=== PATIENT | female | born 1960 | race Caucasian/White ===

== ENCOUNTER 2017-04-09 06:10 | Day surgery (SDC) | payer OTHER ==
[2017-04-09] MEDS ORDERED: DIPRIVAN 200 MG/20 ML IV ONE (06:11)
[2017-04-09] MEDS ORDERED: Ketamine HCl 50 MG/ML IV ONE (06:11)
[2017-04-09] MEDS ORDERED: Lactated Ringers 1,000 ML IV SCH (06:30)
[2017-04-09 09:44] VITALS: BP 139/97; PULSE 84; O2SAT 99
--- NOTE | 2017-04-09 10:03 | OP ---
SURGERY DATE/TIME: 04/09/2017 0710 PREOPERATIVE DIAGNOSES: 1) Epigastric pain. 2) Screening colon exam. POSTOPERATIVE DIAGNOSES: 1) Mild gastritis. 2) Normal colon. PROCEDURES: 1) Esophagogastroduodenoscopy with biopsy. 2) Colonoscopy. SURGEON: Dr. Carney. ANESTHESIA: Medications were given by the anesthesia department. BRIEF HISTORY: The patient is a 57 year old white female presenting now for endoscopic evaluation. She has been having problems with epigastric pain despite medications. The patient also reports that she has never had her colon looked at previously and wishes to have a screening colonoscopy performed at the same time. The patient was described the risks of the procedure including the risk of perforation, phlebitis, untoward reaction to medication, bleeding, missed lesions, sore throat and vocal cord injury. The patient verbalized her understanding and desired to have the procedure performed. DESCRIPTION OF PROCEDURE: The patient was given the medications by the anesthesia department. She had continuous pulse oximetry, ECG monitoring, intermittent blood pressure monitoring and tidal CO2 monitoring during the examination. She was placed in the left lateral decubitus position. A bite block was placed and the flexible Olympus gastroscope was used to intubate the oropharynx. A view of the larynx was obtained and was normal. The scope was easily passed in the esophagus which was normal throughout its length. The stomach was entered where normal gastric rugal folds were seen and these distended nicely with insufflation of air. The scope was passed along the greater curvature of the stomach to the antrum. The pylorus is encountered and intubated. The duodenum was inspected and found to be normal. The scope is withdrawn towards the stomach. Again, a retroflex view was obtained of the lesser curvature, fundus and cardia regions of the stomach revealed hiatal hernia but no mucosal lesions were noted. The scope was redirected towards the antrum and biopsies were obtained to rule out the presence of Helicobacter pylori-type organisms. The scope was then removed from the patient. Next, a digital rectal examination was performed and revealed normal anal sphincter tone and no masses. The flexible Olympus pediatric colonoscope was used to intubate the rectum. A view of the colon was developed sequentially to the cecum. Upon insertion and withdrawal, including a retroflex view in the rectum, no mucosal lesions were encountered. The scope was removed from the patient who tolerated the procedure well and was sent back to OP recovery in good condition. The prep was noted to be fair to good.
== END 2017-04-09 09:46 | disposition home or self-care (01) ==
LOC: SDC 06:10
PROVIDERS: ATTEND Family Medicine
PROC: 0DB78ZX Excision of Stomach, Pylorus, Via Natural or Artificial Opening Endoscopic, Diagnostic (ICD-10-PCS; principal; 2017-04-09)
PROC: 0DJD8ZZ Inspection of Lower Intestinal Tract, Via Natural or Artificial Opening Endoscopic (ICD-10-PCS; 2017-04-09)
DX: K29.70 Gastritis, unspecified, without bleeding (principal); Z12.11 Encounter for screening for malignant neoplasm of colon; K21.9 Gastro-esophageal reflux disease without esophagitis; Z79.899 Other long term (current) drug therapy
CPT/HCPCS: 00740; 00810; 36415; 82962; 88305; J2704

== ENCOUNTER 2020-03-24 21:35 | Emergency (ER) | payer OTHER ==
--- NOTE | 2020-03-24 21:41 | ERPHSYRPT ---
- History of Present Illness Time Seen by Provider: 03/24/20 21:40 Source: patient Exam Limitations: no limitations Physician History: This is a 60-year-old white female who is right-handed and fell off of her to her left shoulder and then rolled onto left elbow. Patient's last tetanus shot was approximately 3 years ago. Patient is having significant pain in the left shoulder. There is an area of deformity present. Patient denies head injury and she denies neck injury. She has no headache and she has no neck pain. Occurred: just prior to arrival Method of Injury: fell Quality: aching, throbbing Severity of Pain-Max: moderate Severity of Pain-Current: moderate Extremities Pain Location: shoulder: left, elbow: left Modifying Factors: Improves With: immobilization (Improved pain), movement (Attempts to move worsens pain) Associated Symptoms: none Allergies/Adverse Reactions: ciprofloxacin [From Cipro] Allergy (Verified 03/24/20 21:57) Itching Penicillins Allergy (Verified 03/24/20 21:57) Rash Home Medications: Citalopram Hydrobromide [Celexa] 40 mg PO DAILY 04/04/17 [History] Esomeprazole Magnesium [Nexium] 20 mg PO BID 04/04/17 [History] Imipramine HCl 100 mg PO HS 04/04/17 [History] Aspirin EC 81 mg [Ecotrin 81 mg] 81 mg PO DAILY 03/24/20 [History] Losartan Potassium [Cozaar] 25 mg PO BID 03/24/20 [History] Ropinirole HCl 0.5 mg [Requip 0.5 MG] 0.5 mg PO HS 03/24/20 [History] Travel Risk - International Travel Have you traveled outside of the country in past 3 weeks: No - Coronavirus Screening Are you exhibiting any of the following symptoms?: No Close contact with a COVID-19 positive Pt in past 14-21 Days: No - Review of Systems Constitutional: No Symptoms Eyes: No Symptoms Ears, Nose, & Throat: No Symptoms Respiratory: No Symptoms Cardiac: No Symptoms Abdominal/Gastrointestinal: No Symptoms Genitourinary Symptoms: No Symptoms Musculoskeletal: Fall, Injury (Right shoulder) Skin: Other Neurological: No Symptoms (Abrasion left elbow) Psychological: No Symptoms Endocrine: No Symptoms Hematologic/Lymphatic: No Symptoms Immunological/Allergic: No Symptoms All Other Systems: Reviewed and Negative - Past Medical History Pertinent Past Medical History: Yes Neurological History: Migraines ENT History: No Pertinent History Cardiac History: Hypertension Respiratory History: No Pertinent History Endocrine Medical History: No Pertinent History Musculoskeletal History: No Pertinent History GI Medical History: GERD History: No Pertinent History Psycho-Social History: Anxiety Female Reproductive Disorders: No Pertinent History - Past Surgical History Past Surgical History: Yes Cardiac: No Pertinent History Respiratory: No Pertinent History Gastrointestinal: Hernia Repair Genitourinary: No Pertinent History Musculoskeletal: Orthopedic Surgery, Other Female Surgical History: Hysterectomy, Tubal Ligation Other Surgical History: screws in elbow - Social History Smoking Status: Never smoker Exposure to second hand smoke: No Drug Use: none - Nursing Vital Signs Nursing Vital Signs: Initial Vital Signs Temperature 98.1 F 03/24/20 21:45 Pulse Rate 85 03/24/20 21:45 Respiratory Rate 18 03/24/20 21:45 Blood Pressure 118/71 03/24/20 21:45 O2 Sat by Pulse Oximetry 95 03/24/20 21:45 Pain Scale Pain Intensity 8 - Physical Exam General Appearance: mild distress, alert, anxiety Eyes, Ears, Nose, Throat Exam: normal ENT inspection, moist mucous membranes Neck Exam: normal inspection, non-tender, supple, full range of motion Cardiovascular/Respiratory Exam: chest non-tender, normal breath sounds, regular rate/rhythm, heart sounds normal, no respiratory distress Abdominal Exam: non-tender Back Exam: normal inspection, normal range of motion, No CVA tenderness, No vertebral tenderness Shoulder Exam: bone tenderness (Left shoulder and left elbow), deformity (Left shoulder), limited ROM (Left shoulder ), soft tissue tenderness (Left shoulder and left elbow) Elbow/Forearm Exam: normal ROM, abrasions (Left elbow), bone tenderness (Left elbow) Wrist Exam: normal inspection, non-tender, no evidence of injury, normal ROM Hand Exam: normal inspection, non-tender, no evidence of injury, normal ROM Neuro/Tendon Exam: normal sensation, normal tendon functions, responds to pain, no evidence tendon injury Mental Status Exam: alert, oriented x 3, cooperative Skin Exam: warm, abrasion (Left elbow) SpO2 Interpretation: normal O2 Delivery: Room Air Ordered Tests: Active Orders 24 hr Category Date Time Status IV Insertion STAT Care 03/24/20 22:00 Active Sling Application STAT Care 03/25/20 00:11 Active ELBOW (MINIMUM 3 VIEWS) Stat Exams 03/24/20 22:00 Ordered HUMERUS Stat Exams 03/24/20 22:00 Ordered SHOULDER Stat Exams 03/24/20 22:00 Taken SHOULDER Stat Exams 03/25/20 00:00 Ordered Medication Summary Discontinued Medications Generic Name Dose Route Start Last Admin Trade Name Bhupendraq PRN Reason Stop Dose Admin Etomidate 10 mg 03/24/20 23:28 Amidate 20 Mg/10 Ml IV 03/24/20 23:29 STAT ONE Hydromorphone HCl 1 mg 03/24/20 22:00 03/24/20 22:05 Hydromorphone 1 Mg/Ml Ampule IV 03/24/20 22:01 1 mg STAT ONE Administration Hydromorphone HCl Confirm 03/24/20 22:03 Hydromorphone 1 Mg/Ml Ampule Administered 03/24/20 22:04 Dose 1 mg .ROUTE .STK-MED ONE Hydromorphone HCl Confirm 03/24/20 23:23 Hydromorphone 1 Mg/Ml Ampule Administered 03/24/20 23:24 Dose 1 mg .ROUTE .STK-MED ONE Hydromorphone HCl 1 mg 03/24/20 23:23 Hydromorphone 1 Mg/Ml Ampule IV 03/24/20 23:24 STAT ONE Sodium Chloride Confirm 03/24/20 23:24 Sodium Chloride 0.9% 1000 Ml Administered 03/24/20 23:25 Dose 1,000 mls @ ud .ROUTE .STK-MED ONE Ondansetron HCl 4 mg 03/24/20 22:00 03/24/20 22:05 Zofran 4 Mg/2 Ml Vial IV 03/24/20 22:01 4 mg STAT ONE Administration Ondansetron HCl Confirm 03/24/20 22:03 Zofran 4 Mg/2 Ml Vial Administered 03/24/20 22:04 Dose 4 mg .ROUTE .STK-MED ONE Ondansetron HCl 4 mg 03/24/20 23:23 Zofran 4 Mg/2 Ml Vial IV 03/24/20 23:24 STAT ONE Ondansetron HCl Confirm 03/25/20 00:07 Zofran 4 Mg/2 Ml Vial Administered 03/25/20 00:08 Dose 4 mg .ROUTE .STK-MED ONE Oxycodone/Acetaminophen 2 tab 03/25/20 00:11 Percocet Tablet 5/325mg PO 03/25/20 00:12 SENT HOME W/ PATIENT STA Pantoprazole Sodium 40 mg 03/25/20 00:14 Protonix 40 Mg Iv IV 03/25/20 00:15 STAT ONE Pantoprazole Sodium Confirm 03/25/20 00:14 Protonix 40 Mg Iv Administered 03/25/20 00:15 Dose 40 mg IV .STK-MED ONE - Progress Progress: improved, pain not gone completely, re-examined Progress Note: 03/25/20 00:06 X-ray of the left shoulder shows a acute anterior dislocation with an associated fracture of the humeral head. X-ray of the left humerus reveals the above-stated fracture of the humeral head but no other acute fracture dislocation noted. X-ray of the left elbow reveals no acute fracture or dislocation. There is an old avulsion fracture that is small. The surgical screw appears to be in an appropriate position 03/25/20 00:21 The post reduction x-ray of the left shoulder reveals the head of the left humerus remains in the dislocated position while the remainder of the humerus has been reduced sufficiently. Medical decision making: The patient's pain is significantly improved after the reduction. Patient is neurovascularly intact. We will place the patient in a sling and patient will be seen 03/25/2020 in the orthopedic clinic at 8 AM. Counseled pt/family regarding: diagnosis, need for follow-up, rad results - Departure Departure Disposition: Home Clinical Impression: Fracture dislocation of left shoulder joint, Abrasion of left elbow Condition: Stable Critical Care Time: No Referrals: APRIL BLANKENSHIP [Primary Care Provider] - [facility] M-F [id number] Additional Instructions: Wear left sling until you are evaluated by orthopedic clinic tomorrow. Follow- up at the [facility] orthopedic clinic at 8 AM tomorrow morning, March 25, 2020. Take your medication as prescribed. Take ibuprofen 600 mg with food every 8 hours for the next 5 days. Do not eat or drink anything until after you are evaluated by the orthopedic clinic. Prescriptions: Oxycodone HCl/Acetaminophen [Percocet 5-325 mg Tablet] 1 each PO Q8H PRN PRN #8 tablet MDD 3 PRN Reason: Pain
[2020-03-24] MEDS ORDERED: Hydromorphone 1 mg/ml Ampule IV ONE ×2 (22:00→23:23)
[2020-03-24] MEDS ORDERED: Zofran 4 MG/2 ML VIAL IV ONE ×2 (22:00→23:23)
[2020-03-24] MEDS ORDERED: Hydromorphone 1 mg/ml Ampule ONE ×2 (22:03→23:23)
[2020-03-24] MEDS ORDERED: Zofran 4 MG/2 ML VIAL ONE (22:03)
[2020-03-24] MEDS ORDERED: Sodium Chloride 0.9% 1000 ML 1,000 ML ONE (23:24)
[2020-03-24] MEDS ORDERED: Amidate 20 MG/10 ML IV ONE (23:28)
[2020-03-25] MEDS ORDERED: Zofran 4 MG/2 ML VIAL ONE (00:07)
[2020-03-25] MEDS ORDERED: PERCOCET TABLET 5/325MG PO STA (00:11)
[2020-03-25] MEDS ORDERED: PROTONIX 40 MG IV IV ONE (00:14)
[2020-03-25] MEDS: PROTONIX 40 MG IV IV ONE ×2 (00:16→00:25)
[2020-03-25] MEDS ORDERED: PERCOCET TABLET 5/325MG ONE (02:10)
[2020-03-25] MEDS ORDERED: ZOFRAN ODT 4 MG PO ONE (02:17)
[2020-03-25] MEDS ORDERED: ZOFRAN ODT 4 MG ONE (02:18)
[2020-03-25 02:43] VITALS: BP 154/97; PULSE 103; O2SAT 94
[2020-03-25] MEDS ORDERED: Sodium Chloride 0.9% 1000 ML 1,000 ML IV STA (03:15)
--- NOTE | 2020-03-25 08:58 | XRAY ---
Indication: Pain following fall. Comparison: None AP and attempted scapular Y-view left shoulder demonstrates anterior inferior humeral head dislocation and humeral neck fracture with displaced fracture fragment. No other bony, articular, or soft tissue abnormalities.
--- NOTE | 2020-03-25 08:58 | XRAY ---
Indication: Pain following fall. Comparison: None 2 view left humerus demonstrates anterior inferior humeral head dislocation, humeral neck fracture with displaced fracture fragment and intact medial epicondyle fixation screw. No other bony, articular, or soft tissue abnormalities.
--- NOTE | 2020-03-25 09:00 | XRAY ---
Indication: Pain following fall. Comparison: None 2 view left elbow demonstrates tiny lateral epicondyle heterotopic ossifications and intact medial epicondyle fixation screw. No other bony, articular, or soft tissue abnormalities.
--- NOTE | 2020-03-25 09:02 | XRAY ---
Indication: Post reduction. Comparison: Taken earlier in the day. Single AP left shoulder demonstrates grossly stable anterior inferior humeral head dislocation with humeral neck fracture now moderately displaced. Stable displaced humeral head fracture fragment. No other bony, articular, or soft tissue abnormalities.
== END 2020-03-25 02:58 | disposition home or self-care (01) ==
LOC: ED 21:35
DX: S42.92XA Fracture of left shoulder girdle, part unspecified, initial encounter for closed fracture (principal); S50.312A Abrasion of left elbow, initial encounter; M25.512 Pain in left shoulder; W19.XXXA Unspecified fall, initial encounter; Y93.9 Activity, unspecified; Y92.9 Unspecified place or not applicable; Y99.9 Unspecified external cause status; I10 Essential (primary) hypertension
CPT/HCPCS: 36000; 73030; 73060; 73070; 94799; 96360; 96374; 96375; 96376; 99285; J1170; J2405; Q0162; A9270-GY